=== PATIENT | female | born 1950 | race Caucasian/White ===

== ENCOUNTER 2017-11-11 15:45 | Outpatient (CLI) | payer MEDICARE | END 2017-11-11 15:46 | disposition home or self-care (01) | LOC: BICRAD 15:45 | PROVIDERS: ATTEND Family Medicine | DX: R07.9 Chest pain, unspecified (principal); R06.89 Other abnormalities of breathing | CPT/HCPCS: 71046 ==

== ENCOUNTER 2017-12-09 17:03 | Inpatient (IN) | payer MEDICARE ==
[2017-12-09 18:02] LABS: #Basophils 0.1 thou/uL (0.0-0.2); #Eosinphils 0.2 thou/uL (0.0-0.7); #Lymphocytes 2.1 thou/uL (1.20-3.40); #Monocytes 0.9 thou/uL (0.11-0.59); #Neutrophils 4.7 thou/uL (1.40-6.50); %Basophils 0.7 % (0.0-1.0); %Eosinophils 2.5 % (0.0-10.0); %Lymphocytes 26.5 % (21.0-51.0); %Monocytes 10.7 % (0.0-10.0); %Neutrophils 59.5 % (42.0-75.0); Hemoglobin 12.7 g/dL (12.0-16.0); Mean Corpuscular HGB CONC 32.8 g/dL (32.0-36.0); Mean Corpuscular Hemoglobin 32.2 pg (27.0-31.0); Mean Corpuscular Volume 98.3 fl (81.0-99.0); Mean Platelet Volume 7.6 fL (7.4-10.4); Platelet Count 271 thou/uL (130-400); RBC Distribution Width 12.6 % (11.5-14.5); Red Blood Cell (RBC) Count 3.93 mill/uL (4.20-5.40)
--- NOTE | 2017-12-09 18:31 | RAD ---
ONE VIEW CHEST: 12/09/17 HISTORY: Pain. COMPARISON: 07/18/17. FINDINGS: Normal cardiac silhouette. Pulmonary vessels and hilum are normal. No mass. No consolidation. No pneu mothorax or osseous abnormalities. IMPRESSION: No acute cardiopulmonary process. POS: [facility]
[2017-12-09 18:37] LABS: ALT (SGPT) 16 U/L (8-55); AST (SGOT) 20 U/L (5-34); Albumin 4.2 g/dL (3.4-4.8); Alkaline Phosphatase 74 U/L (40-150); Anion Gap 13 mmol/L (10-20); BUN (Urea Nitrogen) 16 mg/dL (9.8-20.1); Bilirubin, Total 0.5 mg/dL (0.2-1.2); CK (CPK) 117 U/L (29-168); Calc. Creatinine Clearance 0 mL/min (70-130); Calcium 10.1 mg/dL (7.8-10.44); Carbon Dioxide 28 mmol/L (23-31); Chloride 104 mmol/L (98-107); Estimated GFR-MDRD 81; Globulin 3.2 g/dL (2.4-3.5); Glucose 90 mg/dL (80-115); Potassium 4.4 mmol/L (3.5-5.1); Protein, Total 7.4 g/dL (6.0-8.3); Sodium 141 mmol/L (136-145)
[2017-12-09 18:38] LABS: CKMB 1.3 ng/mL (0-6.6); Troponin I 0.015 ng/mL (< 0.028)
[2017-12-09] MEDS ORDERED: Aspirin 325 MG TAB ONE (19:25)
[2017-12-09 21:31] LABS: Troponin I Less than 0.010 ng/mL (< 0.028)
[2017-12-09 21:49] VITALS: BMI 53.0
[2017-12-09] MEDS ORDERED: Famotidine 20 MG TAB PO PRN (21:53)
[2017-12-09] MEDS ORDERED: Nitroglycerin 0.4 MG TAB (25 Tab Bottle) SL PRN (21:53)
[2017-12-09] MEDS ORDERED: hydrALAZINE 20 MG/ML VIAL SLOW IVP PRN (21:53)
[2017-12-09] MEDS ORDERED: Promethazine 25 MG TAB PO PRN (21:53)
[2017-12-09] MEDS ORDERED: Docusate 100 MG CAP PO PRN (21:53)
[2017-12-09] MEDS ORDERED: Acetaminophen 500 MG TAB PO PRN (21:53)
[2017-12-09] MEDS ORDERED: Ondansetron ODT 4 MG TAB PO PRN (21:53)
[2017-12-09] MEDS ORDERED: Ondansetron ODT 4 MG TAB SL PRN (21:54)
[2017-12-09] MEDS ORDERED: Ondansetron HCl/PF 4 MG/2 ML Vial IVP PRN (21:54)
[2017-12-09] MEDS ORDERED: Acetaminophen 325 MG TAB PO PRN (21:54)
[2017-12-09] MEDS ORDERED: Morphine 4 MG/ML VIAL SLOW IVP PRN (21:55)
[2017-12-10 00:06] LABS: Troponin I Less than 0.010 ng/mL (< 0.028)
--- NOTE | 2017-12-10 04:25 | HP ---
DATE OF ADMISSION: 12/09/[address] All Peña. CHIEF COMPLAINT: Chest pain, palpitations, radiating to arms and neck. HISTORY OF PRESENT ILLNESS: Patient recently underwent a stress test with Dr. Nelson on an outpat ient basis indeterminate to possibly positive finding on the apex of heart; however, given the patien t's body habitus who was inconclusive formally. The patient was given alternatives of cardiac cathet erization for definitive answer to test versus medical management. Patient shows medical management was initiated on isosorbide mononitrate for stable angina. Patient has a history of asthma. Given h er morbid obesity, has some element of Pickwickian syndrome regarding shortness of breath; however, s he started on Imdur therapy and had acute onset of palpitations, chest pain, shortness of breath, rad iation to left jaw and arm, presented to the emergency department for evaluation. Initial EKG withou t any changes in ST pattern. Troponin x1 negative; however, despite aspirin therapy and IV fluids, p atient remained with radiating chest pain. Chest x-ray was noted to be clear. The patient has no ot her acute complaints. FORMAL REVIEW OF PAST MEDICAL, SOCIAL, SURGICAL HISTORY: History of hypertension, asthma, right shou lder surgery, appendectomy, cholecystectomy, tonsillectomy, tubal ligation. Denies alcohol or tobacc o use. HOME MEDICATIONS: Spironolactone 25 mg, Klor-Con 8 mEq, ipratropium nasal spray p.r.n., Lasix 40 mg daily, and albuterol nebs p.r.n. VITAL SIGNS: In the emergency room, blood pressure 144/72, pulse of 57, respiratory rate of 18, oxyg en saturation 95% on room air. REVIEW OF LABORATORY WORK: White blood cell count of 8.0, hemoglobin of 12.7, and platelet count of 271. Sodium of 141, potassium of 4.4, creatinine of 0.72, glucose of 90, total bilirubin of 0.5, AST of 20, ALT of 16. Troponins x2 of 0.015 less than 0.01. Albumin of 4.2. PHYSICAL EXAMINATION: GENERAL: The patient is alert and oriented, no acute distress. HEENT: Normocephalic, atraumatic. Extraocular movements are intact. Sclerae are clear. Oral mucos a is moist. NECK: Supple. Patient is morbidly obese. LUNGS: Diminished breath sounds secondary to body habitus. No wheezes, rhonchi or rales. HEART: Regular rate and rhythm at time of exam. No murmurs auscultated. ABDOMEN: Protuberant, soft, nontender. EXTREMITIES: Lower extremities with multiple varicose veins signs of venous stasis dermatitis and +1 pitting edema bilaterally. NEUROLOGIC: The patient is alert and oriented x3. No focal deficits. Speech is normal. ASSESSMENT AND PLAN: History of coronary artery disease with abnormal to indeterminate stress test p er Emergency Department. Dr. Zuniga was consulted from Emergency Department. Recommending cardiac c atheterization. The patient agreed we will admit patient to have Cardiology followup in the a.m. We will trend troponins overnight. Patient says she has bleeding hemorrhoids with aspirin use. We nisa l follow up as necessary. Regarding the patient's respiratory status. We will continue p.r.n. breat lesley treatments. Additional medication management for patient's heart per Cardiology recommendations .
[2017-12-10] MEDS: Spironolactone 25 MG TAB PO SCH ×2 (08:47→16:48)
[2017-12-10] MEDS: Potassium Chloride 8 MEQ TAB PO SCH (08:47)
[2017-12-10] MEDS: Furosemide 40 MG TAB PO SCH (08:47)
[2017-12-10] MEDS ORDERED: Sodium Chloride 0.9% 1,000 ML IV SCH (10:15)
[2017-12-10] MEDS ORDERED: Communication Order-Pharmacy FS SCH (10:15)
[2017-12-10] MEDS ORDERED: Midazolam HCl 2 mg/2 ml Vial ONE (10:37)
[2017-12-10] MEDS ORDERED: Fentanyl 100 MCG/2 ML VIAL ONE (10:37)
[2017-12-10] MEDS ORDERED: Lidocaine 1% (PF) 30 ML VIAL ONE (10:37)
[2017-12-10] MEDS ORDERED: Heparin 10,000 UNITS/1 ML VIAL ONE (10:40)
--- NOTE | 2017-12-10 10:52 | CON ---
DATE OF CONSULTATION: 12/10/2017 HISTORY: Iman Haines is a 67-year-old white female patient of Dr. Nelson, who was recently reevaluated on 11/19/2017 for chest discomfort. With walking, she would develop substernal chest pressure and tightness associated with mild shortness of breath. With rest, this would be relieved in approximately 1 minute. She underwent echocardiogram which revealed ejection fraction of 55%-60 % with evidence for diastolic dysfunction, mild mitral and mild tricuspid regurgitation. Lexiscan Cardiolite testing revealed mild ischemia of the inferior wall. She elected to try medical therapy. She took her first dose of isosorbide mononitrate 30 mg yesterday morning. At approximately 2:30PM, she was outside talking on the phone and then stood up and started having a pounding headache. She also noted at times some sharp pain on the left side of her neck and her left arm. She did not have any recurrence of the central chest pressure like she had previously with walking. With this, she also can feel her heart beating. She took her blood pressure and systolic pressure was in the 150s to 180s. Heart rate was in the 50s and then one time it was in the 90s. She continued to intermittently feel the pounding in her head and in her chest and decided to come to the emergency room. Cardiac enzymes have been unremarkable. PAST MEDICAL HISTORY: Hypertension, asthma, obesity, and GERD. OPERATIONS: Appendectomy, cholecystectomy, tonsillectomy, and tubal ligation. SOCIAL HISTORY: She does not smoke or drink. MEDICATIONS: Isosorbide mononitrate 30 mg q.a.m., which she has taken once; montelukast 10 mg at bedtime; levocetirizine 5 mg at bedtime; albuterol 2 puffs q.6 hours p.r.n.; albuterol nebs p.r.n.; furosemide 40 q.a.m.; Tessalon 100 mg t.i.d. p.r.n.; Aldactone 50 daily; KCl 8 mEq daily. ALLERGIES: TRAMADOL causes anaphylaxis. REVIEW OF SYSTEMS: A 10 point review of systems otherwise unremarkable. PHYSICAL EXAMINATION: VITAL SIGNS: 157/69, pulse of 53. HEENT: PERRL. NECK: Supple. CHEST: Clear. CARDIAC: S1 and S2 normal without any S3, S4 or murmurs. Carotid upstrokes normal, without bruits. ABDOMEN: Obese. Normal bowel sounds, no tenderness. EXTREMITIES: Revealed trace pretibial edema with stasis changes of both lower extremities. NEUROLOGIC: Grossly intact. SKIN: Warm and dry. LABORATORY DATA AND IMAGING DATA: Cardiac enzymes have been normal. EKG revealed sinus rhythm and is unremarkable. Hemoglobin 12.7, hematocrit 38.6, white count 8,000, platelets 271,000. Sodium 141, potassium 4.4, chloride 104, carbon dioxide 28, BUN 16, and creatinine 0.72. On 11/09/2017, cholesterol was 197, triglycerides 115, HDL 46, LDL 128. IMPRESSION: 1. Abnormal Lexiscan Cardiolite testing with mild ischemia of the inferior wall. 2. Pounding headache and feeling of her heart beating after taking isosorbide mononitrate. She did not have any of her usual chest discomfort yesterday. 3. Hypertension. 4. Hypercholesterolemia. 5. Positive family history. 6. Obesity. 7. Hemorrhoidal bleeding with aspirin. PLAN: Situation was discussed with the patient and her . Overall, it was recommended that she undergo cardiac catheterization for more definitive diagnosis. Risks of catheterization were discussed including , myocardial infarction, stroke, dye reaction, vascular injury, transfusion, limb loss, kidney damage, etc. We also discussed stenting, additional risk of , myocardial infarction, emergent CABG, restenosis, stent thrombosis, vessel perforation, etc. She is quite concerned about hemorrhoidal bleeding with taking aspirin on a regular basis and therefore only a bare metal stent would be placed to limit the amount of time that she would need to be exposed to Plavix. Certainly, if she would develop bleeding on aspirin and Plavix, this would need to be further evaluated. She understands the risks and is agreeable to proceed today. YOLANDA
[2017-12-10] MEDS ORDERED: Metoprolol Tartrate 5 MG/5 ML VIAL ONE (12:01)
[2017-12-10] MEDS ORDERED: Protamine Sulfate 50 MG/5 ML VIAL ONE (12:07)
[2017-12-10] MEDS ORDERED: Nitroglycerin 0.4 MG TAB (25 Tab Bottle) SL PRN (12:25)
[2017-12-10] MEDS ORDERED: Acetaminophen/Codeine 30-300mg Tablet PO PRN ×2 (12:25)
[2017-12-10] MEDS ORDERED: traMADol HCl 50 MG TAB PO PRN (12:25)
[2017-12-10] MEDS ORDERED: Dronedarone HCl 400 MG TAB PO SCH (12:30)
[2017-12-10] MEDS ORDERED: Diltiazem 125 MG in Sodium Chloride 0.9% 100 ML IVPB SCH ×2 (12:30→14:15)
[2017-12-10] MEDS ORDERED: Sodium Chloride 0.9% 200 ML IV SCH (12:30)
[2017-12-10] MEDS ORDERED: Iopamidol 370 76% 50 ML VIAL FS ONE (13:51)
[2017-12-10] MEDS ORDERED: Iopamidol 370 76% 100 ML VIAL ONE (13:51)
--- NOTE | 2017-12-10 14:07 | EKG ---
Test Reason : Blood Pressure : / mmHG Vent. Rate : 052 BPM Atrial Rate : 052 BPM P-R Int : 146 ms QRS Dur : 102 ms QT Int : 432 ms P-R-T Axes : 040 038 022 degrees QTc Int : 401 ms Sinus bradycardia Non-specific intra-ventricular conduction delay Abnormal ECG Confirmed by SEAN VELASCO ([id number]) on 12/10/2017 2:07:20 PM Referred By: RASHIDA Confirmed By:SEAN VELASCO
--- NOTE | 2017-12-10 14:12 | EKG ---
Test Reason : Blood Pressure : / mmHG Vent. Rate : 112 BPM Atrial Rate : 125 BPM P-R Int : 000 ms QRS Dur : 102 ms QT Int : 340 ms P-R-T Axes : 000 047 -58 degrees QTc Int : 464 ms Atrial fibrillation with rapid ventricular response Nonspecific ST and T wave abnormality Abnormal ECG Confirmed by SEAN VELASCO ([id number]) on 12/10/2017 2:12:05 PM Referred By: MARIAJOSE Confirmed By:SEAN VELASCO
[2017-12-10] MEDS: Dronedarone HCl 400 MG TAB PO SCH (16:47)
[2017-12-10] MEDS: Sodium Chloride 0.9% 1,000 ML IV SCH (16:48)
--- NOTE | 2017-12-10 17:03 | PRG ---
DATE OF SERVICE: 12/10/2017 SUBJECTIVE: Ms. Haines has undergone cardiac catheterization. Findings did not reveal any significan t coronary artery disease; however, she has developed atrial fibrillation. She will be getting a dos e of Multaq now. OBJECTIVE: LUNGS: Clear. HEART: Reveals an irregularly regular rhythm. IMPRESSION: Chest pain probably secondary to atrial fibrillation and normal coronary arteries. PLAN: Per Cardiology. She will be placed on Multaq; she converts, she probably can go home tomorrow on Multaq that will be at the Cardiology. We will notify Dr. Bolanos of the patient. He will follow her tomorrow.
[2017-12-11] MEDS: Sodium Chloride 0.9% 1,000 ML IV SCH ×3 (01:32→16:05)
[2017-12-11] MEDS: Spironolactone 25 MG TAB PO SCH ×2 (08:14→16:04)
[2017-12-11] MEDS: Potassium Chloride 8 MEQ TAB PO SCH (08:15)
[2017-12-11] MEDS: Furosemide 40 MG TAB PO SCH (08:15)
[2017-12-11] MEDS: Dronedarone HCl 400 MG TAB PO SCH ×2 (08:15→16:04)
[2017-12-11] MEDS: Enoxaparin Sodium 100 MG/ML SYRINGE SC SCH (20:46)
[2017-12-11] MEDS: Enoxaparin Sodium 40 MG/0.4 ML SYRINGE SC SCH (20:47)
[2017-12-11] MEDS ORDERED: Enoxaparin Sodium 120 MG/0.8 ML SYRINGE SC SCH (21:00)
[2017-12-12 00:29] LABS: Hemoglobin 11.1 g/dL (12.0-16.0); Platelet Count 213 thou/uL (130-400)
[2017-12-12] MEDS: Dronedarone HCl 400 MG TAB PO SCH ×2 (09:17→17:03)
[2017-12-12] MEDS: Potassium Chloride 8 MEQ TAB PO SCH (09:17)
[2017-12-12] MEDS: Furosemide 40 MG TAB PO SCH (09:18)
[2017-12-12] MEDS: Spironolactone 25 MG TAB PO SCH ×2 (09:18→17:03)
[2017-12-12] MEDS: Enoxaparin Sodium 100 MG/ML SYRINGE SC SCH (09:29)
[2017-12-12] MEDS: Enoxaparin Sodium 40 MG/0.4 ML SYRINGE SC SCH (09:29)
[2017-12-12] MEDS ORDERED: Lisinopril 10 MG TAB PO SCH (18:00)
--- NOTE | 2017-12-12 22:27 | CON ---
DATE OF CONSULTATION: 12/12/2017 REASON FOR CONSULTATION: Hematochezia. CONSULTING PHYSICIAN: Noble Rey M.D. HISTORY OF PRESENT ILLNESS: The patient is a 67-year-old female with past medical history of hyperte nsion, asthma, obesity, GERD, YOMAIRA and recent diagnosis of paroxysmal atrial fibrillation as well as a history of bleeding hemorrhoids, who initially presented with complaints of chest pain. The patient was evaluated by Dr. Nelson as an outpatient to determine the possibility of possible coronary ar heidy disease given her recent chest pain, as part of that evaluation has ultimately proceeded to card iac catheterization. During the cardiac catheterization, she was noted to be in paroxysmal bouts of atrial fibrillation as well as electrical conductivity abnormalities concerning for sick sinus syndro me. With this new diagnosis of paroxysmal atrial fibrillation, the jain of that anticoagulation wa s discussed with the patient; however, she does have a history of chronic bleeding hemorrhoids that w ould be exacerbated by minimal changes in both bowel habit and medications. Given concern for increa sed anticoagulation, GI was consulted for evaluation of her hemorrhoids. Upon speaking with the patient, she states that she has been having intermittent rectal bleeding for the last 2 years, characterized as bright red blood per rectum that was present on both the toilet pa per and in the toilet. These are felt to be due to hemorrhoids that have been evaluated in the past for GI with exacerbations of her bleeding hemorrhoids prompted by use of full strength aspirin and in creased straining to have a bowel movement. She also states she is currently having one semi-solid b owel movement per day with intermittent straining, but does spend a prolonged amount of time on the t oilet as a result of her stooling habits. Currently, denies any nausea, vomiting, fevers, chills, ab dominal pain, hematemesis or melena. REVIEW OF SYSTEMS: A 10-category review of systems was obtained with all responses negative except f or the pertinent positives as listed in the HPI. PAST MEDICAL HISTORY: As per HPI. PAST SURGICAL HISTORY: Right shoulder surgery, appendectomy, cholecystectomy, tonsillectomy, bilater al tubal ligation. FAMILY HISTORY: Denies any GI malignancies. SOCIAL HISTORY: Denies any tobacco, alcohol or illicit drug use. HOME MEDICATIONS: Reviewed. ALLERGIES: TRAMADOL and HYDRALAZINE. PHYSICAL EXAMINATION: VITAL SIGNS: Temperature 97.9, pulse 71, blood pressure 134/78, respiratory rate 16, satting 93% on room air. GENERAL: The patient sitting at bedside, in no acute distress, alert and oriented x4. NECK: Supple. No JVD noted. CARDIOVASCULAR: Regular rate and rhythm with no discernible murmurs, gallops or rubs. RESPIRATORY: Clear to auscultation bilaterally with no discernible wheezes or rales. ABDOMEN: Normoactive bowel sounds, soft, nontender, and nondistended. Protuberant abdomen. EXTREMITIES: Venous stasis rash noted bilaterally to mid ferreira with trace to 1+ edema to mid ferreira. LABORATORY DATA: CBC with hemoglobin of 11.1, hematocrit 33.1. Chemistry only showing a creatinine of 0.74. IMAGING DATA: No current GI imaging is available for review. ASSESSMENT AND PLAN: The patient is a 67-year-old female with past medical history of hypertension, asthma, morbid obesity, gastroesophageal reflux disease, obstructive sleep apnea, and recent diagnosi s of paroxysmal atrial fibrillation and history of bleeding hemorrhoids, presenting with complaints o f hematochezia in light of impending anticoagulation. Hematochezia. The patient is presenting with a chronic history of hematochezia characterized as blee ding hemorrhoids that have been present for the last 2 years. She was evaluated to that end as an ou tpatient in 05/2011 with complaints of rectal bleeding and underwent colonoscopy by Dr. Jules, which showed both internal and external hemorrhoids, but no other significant findings. Recommendations w ere made at that particular point in time to repeat the colonoscopy in 10 years as part of screening purposes. However, she does continue to have rectal bleeding most likely due to hemorrhoids, exacerb ated by increased straining to have a bowel movement and spending prolonged amounts of time on the to ilet. With the jain of anticoagulation, hemorrhoid surgery is a possibility; however, she has been seen by Dr. Bullard as an outpatient, who wanted a repeat colonoscopy prior to surgery for the evalu ation of the colon for any other abnormalities. At this point in time, the patient is very hesitant to proceed with a repeat colonoscopy and would rather focus on her cardiac issues at the current poin t in time. I explained both the risks and the benefits of having a repeat colonoscopy for the evalua tion to get these hemorrhoids fix prior to anticoagulation versus proceeding with anticoagulation and monitoring her clinical status. At this point in time, she would prefer to hold on colonoscopy and talk with her industrial relations specialist about anticoagulation in light of her bleeding hemorrhoids. RECOMMENDATIONS: 1. Continue to trend hemoglobin and hematocrit and transfuse as necessary to maintain hemoglobin and hematocrit of 7/21. 2. Continue to monitor for clinical signs of active gastrointestinal bleeding. 3. We will hold off on colonoscopy for now per patient's preference. I would recommend one in the n ear future for evaluation of the colon prior to hemorrhoid surgery as per General Surgery recommendat ions. We will sign off at this time. Please call with any additional questions or if the patient wishes to proceed with colonoscopy.
[2017-12-13] MEDS: Dronedarone HCl 400 MG TAB PO SCH ×2 (08:40→17:22)
[2017-12-13] MEDS: Spironolactone 25 MG TAB PO SCH ×3 (08:40→17:24)
[2017-12-13] MEDS: Furosemide 40 MG TAB PO SCH (08:40)
[2017-12-13] MEDS: Potassium Chloride 8 MEQ TAB PO SCH (08:41)
[2017-12-13] MEDS: Lisinopril 10 MG TAB PO SCH ×2 (08:41→20:38)
--- NOTE | 2017-12-13 13:23 | PRG ---
DATE OF SERVICE: 12/13/2017 Ms. Haines is now out of atrial fibrillation. She is currently on Multaq. She has developed some rec jim bleeding. This has been known for a while. She was recommended to have a colonoscopy. This has been tentatively scheduled for tomorrow. No other medical complaints are noted. IMPRESSION: 1. Atrial fibrillation. 2. Gastrointestinal bleeding secondary to symptomatic hemorrhoids. PLAN: I have recommended we go ahead and proceed with colonoscopy so she can be monitored while she is here. Await other treatment recommendations. This needs to be done, so the patient can start enrrique g-term anticoagulant therapy.
--- NOTE | 2017-12-13 13:40 | PRG ---
DATE OF SERVICE: 12/13/2017 SUBJECTIVE: Ms. Haines is noted to have a little bit of cough, starting dry cough, and some slight wh eezing since she is being here. She did start lisinopril yesterday and wonders if this is a side eff ect, she has not had a cough like this. She also does have asthma and does not feel like she is havi ng exacerbation and she takes p.r.n. inhalers, but she states her has noticed audible wheezin g. OBJECTIVE: VITAL SIGNS: Temperature is 97, pulse 62, respirations 18, blood pressure 108/73. GENERAL: The patient is a little bit overweight. She seems a little bit short of breath. LUNGS: Clear. I do not hear any audible wheezing, some decreased breath sounds at bases. EXTREMITIES: No edema. LABORATORY STUDIES: None today. ASSESSMENT: 1. New onset atrial fibrillation. Dr. Rey is considering anticoagulation. The patient jose stratton has had a history of rectal bleeding recently and had seen Dr. Bullard about hemorrhoidectomy, bu t he wanted to have a colonoscopy first since her last examination has been in 2010 or 2011, which sh e reports it was normal. She has had no bleeding here presently. 2. The patient at this time is not sure if she wants to proceed with colonoscopy and she wants to aw ait Dr. All Peña. She was concerned that cardiology, she got a colonoscopy with atrial fibrilla tion, basically explained to her that she has been cleared by Cardiology. From that standpoint, I th ink with her asthma or wheezing, however, and cough, this may be an issue, I will talk with Dr. Peña after she sees today. PLAN: She will need a colonoscopy ultimately with her hematochezia. It seems that her Surgery wants this done before she has a hemorrhoidectomy and her financial management analyst like it done before he puts her on blood thinners, which seems to be reasonable and she describes having quite a bit of bleeding at time s, although she is not anemic. We will proceed with colonoscopy once she decides she is ready and re spiratory status is stable. I will talk with Dr. Peña later today about that. This could be done a s an inpatient tomorrow or an outpatient later this week.
[2017-12-13] MEDS ORDERED: GoLYTELY 4,000 ml Bottle PO SCH (16:00)
--- NOTE | 2017-12-13 19:20 | PRG ---
DATE OF SERVICE: 12/13/2017 SUBJECTIVE: Ms. Haines is doing well. She states she has had recurrent bleeding. She is scheduled f or colonoscopy tomorrow. She is off all anticoagulation therapy. She has been in sinus rhythm since starting Multaq. OBJECTIVE: VITAL SIGNS: Blood pressure 130/64, pulse 60, temperature 97.6. LUNGS: Clear to auscultation. HEART: Regular rate and rhythm. ABDOMEN: Soft, nontender, nondistended. EXTREMITIES: No edema. IMPRESSION: Paroxysmal atrial fibrillation. RECOMMENDATIONS: Certainly, a difficult case. We will await findings on colonoscopy. At this point , I do not feel she would benefit from anticoagulation therapy given that she is continuing to bleed. May consider surgery versus a Watchman device to help protect from CVA. A long discussion with landy randolph her and her was performed today. Otherwise, we will await findings tomorrow.
[2017-12-14 05:20] LABS: Hemoglobin 11.1 g/dL (12.0-16.0); Platelet Count 217 thou/uL (130-400)
[2017-12-14] MEDS: Lisinopril 10 MG TAB PO SCH ×2 (07:40→20:38)
--- NOTE | 2017-12-14 07:59 | PRG ---
DATE OF SERVICE: 12/14/2017 Ms. Haines is doing well today. She has no medical complaints. PHYSICAL EXAMINATION: VITAL SIGNS: Temperature 97.8, BP 143/83. LUNGS: Clear. HEART: Reveals no murmur, regular rate and rhythm. LABORATORY: Hemoglobin 11.1, hematocrit 32.8. She is scheduled for colonoscopy later today. Review of her note, she has had a discussion with Dr. Nelson about further treatment of her atrial fibrillation. This will somewhat depend on the findings of her colonoscopy. More than likely she w ill be discharged home today on her current medications to follow up with Cardiology and possibly fol low up with Surgery for hemorrhoid procedures. This will be determined by colonoscopy.
[2017-12-14] MEDS: Dronedarone HCl 400 MG TAB PO SCH ×2 (14:17→15:37)
[2017-12-14] MEDS: Spironolactone 25 MG TAB PO SCH ×2 (14:17→15:37)
[2017-12-14] MEDS: Potassium Chloride 8 MEQ TAB PO SCH (15:36)
[2017-12-14] MEDS: Furosemide 40 MG TAB PO SCH (15:37)
--- NOTE | 2017-12-14 15:37 | OP ---
DATE OF PROCEDURE: 12/14/2017 PROCEDURE: Colonoscopy. PREOPERATIVE DIAGNOSIS: Hematochezia. OPERATIVE NOTE: Informed consent was obtained from the patient. She was sedated with total intraven ous anesthesia. The rectal exam was performed and was normal. The colonoscope was advanced without difficulty to the terminal ileum. The mucosa of the terminal ileum was normal. The ileocecal valve and appendiceal orifice were clearly identified. The preparation quality was fair but with extensive irrigation, views were adequate. There was diverticulosis throughout the colon, which was moderate in severity. The remainder of the colonic mucosa was normal. Retroflexed views in the rectum reveal ed large internal hemorrhoids which did have some intermittent oozing and clotting over them that was hed clear. There is also some red blood on the washcloth that indicates mild bleeding from these hem orrhoids. There was no blood in the rectum or distal colon to suggest diverticular source for bleedi ng. RECOMMENDATIONS: 1. Follow up with Dr. Bullard for hemorrhoidectomy. I will keep her on a clear liquid diet for now until the timing of this procedure is determined. 2. Repeat colonoscopy in five years in light of the fair colon prep. 3. I will sign off for now. Please call if GI can be of assistance.
[2017-12-14] MEDS ORDERED: ePHEDrine/0.9% NaCl/PF SYRINGE 50 mg/10 ml ONE (16:16)
[2017-12-14] MEDS ORDERED: Lidocaine 1% PF 5 ML VIAL ONE (16:16)
[2017-12-14] MEDS ORDERED: PROPOFOL 200 MG/20 ML VIAL ONE (16:16)
[2017-12-15] MEDS: Potassium Chloride 8 MEQ TAB PO SCH (08:57)
[2017-12-15] MEDS: Dronedarone HCl 400 MG TAB PO SCH ×2 (08:57→16:01)
[2017-12-15] MEDS: Lisinopril 10 MG TAB PO SCH ×2 (08:58→21:06)
[2017-12-15] MEDS: Spironolactone 25 MG TAB PO SCH ×2 (08:58→16:01)
[2017-12-15] MEDS: Furosemide 40 MG TAB PO SCH (08:58)
--- NOTE | 2017-12-15 09:25 | PRG ---
DATE OF SERVICE: 12/15/2017 Ms. Haines has undergone colonoscopy, which has revealed extensive hemorrhoidal disease. A decision h as been made by myself to have consultation with Dr. Nelson and Dr. Velázquez. I wished her to procee d with hemorrhoidectomy Patient is already prepped. We will consult with Dr. Bullard and let him kn ow the situation. Patient has been kept on clear liquids; however, she could have her surgery by pito velásquez. Patient has verbalized understanding of this at this point, and after hemorrhoidectomy, she c an be discharged home. Once she is recovered, she is to start anticoagulant therapy under the devonte ce of Cardiology.
--- NOTE | 2017-12-15 13:09 | PDOC.CTH ---
Cardiology Progress Note - Subjective Patient without complaints. Wants to discuss long-term OAC and risks. Plan for hemorrhoidectomy tomorrow. - Objective Vital Signs Temp Pulse Resp BP BP Pulse Ox 12/15/17 08:00 98.3 F 56 L 16 137/71 95 12/15/17 04:00 97.8 F 63 18 119/52 L 93 L 12/14/17 12/15/17 12/16/17 06:59 06:59 06:59 Intake Total 720 600 Output Total 1000 500 Balance -280 100 - Physical Examination General/Neuro: alert & oriented x3, NAD Neck: no JVD present Lungs: CTA, unlabored respirations Heart: RRR Abdomen: NT/ND Extremities: other: (chronic venous stasis changes) - Telemetry Telemetry Rhythm: SR - Labs Result Diagrams: 12/14/17 03:50 12/14/17 00:40 Troponin/CKMB CK-MB (CK-2) 1.3 ng/mL (0-6.6) 12/09/17 17:52 Troponin I Less than 0.010 ng/mL (< 0.028) 12/09/17 23:29 - Assessment/Plan 1. CP - resolved. Negative cath. No CAD. 2. Paroxysmal AFib - maintaining NSR on Multaq. Discussed NOACs. Will discuss when to start post-operatively. 3. Anemia - thought to be secondary to hemorrhoid bleeding. Surgery tomorrow. Low-risk of ACS.
[2017-12-16 06:03] LABS: Hemoglobin 11.1 g/dL (12.0-16.0); Platelet Count 229 thou/uL (130-400)
--- NOTE | 2017-12-16 08:09 | PRG ---
DATE OF SERVICE: 12/16/2017 SUBJECTIVE: Ms. Haines is doing well. She is ready for surgery. She has been prepped . PHYSICAL EXAMINATION: VITAL SIGNS: Blood pressure 149/69, temperature 97.6, pulse 56 and regular. LUNGS: Clear. HEART: Reveals no murmur. Regular rate and rhythm. IMPRESSION: 1. Atrial fibrillation. 2. Hemorrhoids. PLAN: The patient underwent hemorrhoidectomy today. She can be discharged later . Follow up w micki moreno on a p.r.n. basis and primary followup would be with the Cardiology surgery. She will follow up with Cardiology to begin oral anticoagulant therapy.
[2017-12-16] MEDS: Lisinopril 10 MG TAB PO SCH ×2 (08:27→20:31)
[2017-12-16] MEDS ORDERED: cefOXitin 2 GM, Syringe 1 ML in Sterile Water 10 ML SLOW IVP SCH (12:15)
[2017-12-16] MEDS ORDERED: Fentanyl 100 MCG/2 ML VIAL ONE (12:33)
[2017-12-16] MEDS ORDERED: Lidocaine 2% 10 ML INJ ONE (12:36)
[2017-12-16] MEDS ORDERED: Bupivacaine/Epinephrine 0.25% 30 ML VIAL ONE (12:36)
[2017-12-16] MEDS ORDERED: Lidocaine 2% Jelly 5 ML TUBE ONE (12:36)
[2017-12-16] MEDS ORDERED: Lidocaine 1% PF 5 ML VIAL ONE (12:56)
[2017-12-16] MEDS ORDERED: ePHEDrine/0.9% NaCl/PF SYRINGE 50 mg/10 ml ONE (12:56)
[2017-12-16] MEDS ORDERED: Glycopyrrolate 0.2 MG/ML 5 ML SYRINGE ONE (12:56)
[2017-12-16] MEDS ORDERED: PROPOFOL 200 MG/20 ML VIAL ONE (12:56)
[2017-12-16] MEDS ORDERED: Dexamethasone 20 MG/5 ML VIAL ONE (12:56)
[2017-12-16] MEDS ORDERED: Promethazine HCl 25 MG/ML VIAL SLOW IVP PRN (13:58)
[2017-12-16] MEDS ORDERED: Ondansetron HCl/PF 4 MG/2 ML Vial IVP PRN (13:58)
[2017-12-16] MEDS ORDERED: Promethazine HCl 25 MG/ML VIAL IM PRN (13:58)
[2017-12-16] MEDS ORDERED: HYDROcodone/Acetaminophen 10/325 mg Tablet PO PRN (14:03)
--- NOTE | 2017-12-16 14:51 | PDOC.CTH ---
Cardiology Progress Note - Subjective patient just back from OR. Drowsy. No CP/SOB. Maintaining NSR on tele. José. HR down to 40s 5/2. Asymptomatic. - Objective Vital Signs Temp Pulse Resp BP BP Pulse Ox 12/16/17 08:25 97.9 F 59 L 18 129/60 94 L 12/16/17 04:00 97.6 F 56 L 16 149/69 H 94 L 12/15/17 12/16/17 12/17/17 06:59 06:59 06:59 Intake Total 600 840 Output Total 500 300 Balance 100 540 - Physical Examination General/Neuro: alert & oriented x3, NAD Neck: no JVD present Lungs: CTA, unlabored respirations Heart: PMI normal, RRR Abdomen: soft - Telemetry Telemetry Rhythm: Sinus José - Labs Result Diagrams: 12/16/17 05:33 12/16/17 00:14 Troponin/CKMB CK-MB (CK-2) 1.3 ng/mL (0-6.6) 12/09/17 17:52 Troponin I Less than 0.010 ng/mL (< 0.028) 12/09/17 23:29 - Assessment/Plan 1. CP - negative cath. 2. Paroxysmal AF - converted back to NSR/Sinus josé. Avoid bblockers. Continue Multaq and Eliquis. May need EVR at discharge given josé. 3. Bradycardia - see above. 4. Anemia - secondary to GIB/hemorrhoids. s/p hemorrhoidectomy. Ok for discharge from my standpoint once cleared from surgical team. Will discuss EVR with Dr. Nelson and mail to patient if needed. Resume NOAC when allowed by GS team.
[2017-12-16] MEDS: Dronedarone HCl 400 MG TAB PO SCH ×2 (17:18)
[2017-12-16] MEDS: Spironolactone 25 MG TAB PO SCH ×2 (17:18)
[2017-12-16] MEDS: Potassium Chloride 8 MEQ TAB PO SCH (17:18)
[2017-12-16] MEDS: Furosemide 40 MG TAB PO SCH (17:18)
[2017-12-16] MEDS: HYDROcodone/Acetaminophen 10/325 mg Tablet PO PRN (20:32)
[2017-12-17] MEDS: HYDROcodone/Acetaminophen 10/325 mg Tablet PO PRN ×2 (01:06→05:28)
--- NOTE | 2017-12-17 08:23 | PDOC.GSPN ---
Surgery Progress Note: Subj - Subjective Narrative: POD 1 internal hemorrhoidectomy, pain controlled Surgery Progress Note: Obj - Vital signs Vital signs: Vital Signs - Most Recent Temp Pulse Resp BP Pulse Ox 97.8 F 59 L 17 126/54 L 95 12/17/17 04:00 12/17/17 04:00 12/17/17 04:00 12/17/17 04:00 12/17/17 04:00 - Physical Exam General: no distress Surgery Progress Note: Results - Labs Result Diagrams: 12/16/17 05:33 12/16/17 00:14 Surgery Progress Note: A/P - Problem (1) Bleeding internal hemorrhoids Current Visit: Yes Code(s): K64.8 - OTHER HEMORRHOIDS Status: Acute - Plan Plan: POD 1 PPH hemorrhoidectomy. DC today. Needs to take miralax daily
[2017-12-17 08:31] VITALS: BP 127/58; TEMP 98.2
[2017-12-17] MEDS: Dronedarone HCl 400 MG TAB PO SCH (08:33)
[2017-12-17] MEDS: Spironolactone 25 MG TAB PO SCH (08:33)
[2017-12-17] MEDS: Potassium Chloride 8 MEQ TAB PO SCH (08:34)
[2017-12-17] MEDS: Furosemide 40 MG TAB PO SCH (08:34)
--- NOTE | 2017-12-17 08:38 | PRG ---
DATE OF SERVICE: 12/17/2017 Ms. Haines was set to go home yesterday, unfortunately she developed some swelling of her lip and thro at. She remained overnight. At this time she has not noticed any problems with it. PHYSICAL EXAMINATION: VITAL SIGNS: Temperature 97.8, BP 126/64, pulse 59 and regular. LUNGS: Clear. HEART: Reveals no murmur. FACE: There is no swelling of the upper or lower lip noted. She is breathing normally. She is able to swallow. IMPRESSION: 1. Atrial fibrillation. 2. Hemorrhoids, status post hemorrhoidectomy. 3. Incident of lip swelling. This possibly could be related to lisinopril. This probably needs to be stopped. She probably needs to have her blood pressure medicine today prior to discharge. PLAN: I will discuss this with Dr. Nelson prior to discharge. At this point, we will hold her li sinopril.
[2017-12-17] MEDS ORDERED: Polyethylene Glycol 3350 17 GM Packet PO SCH (09:00)
--- NOTE | 2017-12-17 15:36 | PRG ---
DATE OF SERVICE: 12/17/2017 SUBJECTIVE: Ms. Haines is doing better today. No current complaints. She did have episode of lip sw elling yesterday. This may have been related to DEISI inhibitor therapy. This is felt to have been di scontinued. Norvasc has been added. OBJECTIVE: VITAL SIGNS: Blood pressure 127/58, pulse 60, temperature 98.2. LUNGS: Clear to auscultation. HEART: Regular rate and rhythm. ABDOMEN: Soft, nontender, nondistended. EXTREMITIES: No edema. IMPRESSION: 1. Paroxysmal atrial fibrillation. 2. Hypertension. RECOMMENDATIONS: 1. Continue Multaq. 2. Add Eliquis as an outpatient when she is out of her postop period. 3. Add Norvasc 5 [address] q[address]a.m. and place of lisinopril and ARB. From my standpoint, okay for discharge with outpatient followup next week.
--- NOTE | 2017-12-20 13:20 | OP ---
DATE OF PROCEDURE: 12/16/2017 PREOPERATIVE DIAGNOSIS: Bleeding and prolapsing internal hemorrhoids. POSTOPERATIVE DIAGNOSIS: Bleeding and prolapsing internal hemorrhoids. PROCEDURE: PPH stapled hemorrhoidectomy. SURGEON: Edwin Bullard M.D. ANESTHESIA: General. ESTIMATED BLOOD LOSS: Minimal. COMPLICATIONS: None. SPECIMEN: Hemorrhoids. TECHNIQUE: The patient was taken to the operating room and placed supine on the table. After anesth etic was obtained, placed in the prone position. Her perineal area was taped open. Anal finger exam revealed no obvious anal canal mass. The obturator is placed and sewn to the perianal skin using si lk suture. A pursestring of Prolene was placed 2 cm above the anal verge circumferentially. PPH sta pled hemorrhoidectomy stapler was opened to its full extent. The anvil was placed above and the sutu re tied down. The ends of the suture passed through the stapler and held using a hemostat. The stap ler was tied down into the green zone. Finger was placed in the vagina to make sure the posterior wa ll was not involved. The stapler was fired. Two good rings of tissue were obtained and sent to path for final diagnosis. A few bleeders on the staple line were oversewn using Vicryl suture. The prol apsing hemorrhoids are much improved after the stapling. The Gelfoam and lidocaine jelly was passed in the anal canal. The patient was en route to recovery in stable condition. All instrument counts, needle counts, lap counts were correct. No injury to the sphincter muscle were complexed.
== END 2017-12-17 10:53 | disposition home or self-care (01) | DRG 982 ==
LOC: ERS 17:03 → 2SW 19:00 → OBSVTOIN 12-12 17:18 → 2NO 12-13 14:46
PROVIDERS: ADMIT Family Medicine; ATTEND Family Medicine
PROC: 4A023N7 Measurement of Cardiac Sampling and Pressure, Left Heart, Percutaneous Approach (ICD-10-PCS; principal; 2017-12-10)
PROC: B2111ZZ Fluoroscopy of Multiple Coronary Arteries using Low Osmolar Contrast (ICD-10-PCS; 2017-12-10)
PROC: B2151ZZ Fluoroscopy of Left Heart using Low Osmolar Contrast (ICD-10-PCS; 2017-12-10)
PROC: 0DJD8ZZ Inspection of Lower Intestinal Tract, Via Natural or Artificial Opening Endoscopic (ICD-10-PCS; 2017-12-14)
PROC: 0DQQ8ZZ Repair Anus, Via Natural or Artificial Opening Endoscopic (ICD-10-PCS; 2017-12-16)
DX: I48.0 Paroxysmal atrial fibrillation (principal); Z68.43 Body mass index [BMI] 50.0-59.9, adult; E66.01 Morbid (severe) obesity due to excess calories; J45.909 Unspecified asthma, uncomplicated; K57.30 Diverticulosis of large intestine without perforation or abscess without bleeding; K64.8 Other hemorrhoids; I10 Essential (primary) hypertension; K21.9 Gastro-esophageal reflux disease without esophagitis; G47.33 Obstructive sleep apnea (adult) (pediatric); E78.00 Pure hypercholesterolemia, unspecified; D50.0 Iron deficiency anemia secondary to blood loss (chronic); R22.0 Localized swelling, mass and lump, head; Z88.5 Allergy status to narcotic agent; Z79.899 Other long term (current) drug therapy; T46.4X5A Adverse effect of angiotensin-converting-enzyme inhibitors, initial encounter
CPT/HCPCS: 36415; 71045; 76942; 80053; 82550; 82553; 82565; 84484; 85014; 85018; 85025; 85049; 88304; 93005; 93010; 93458; 93798; 99152; 99153; A4216; C1769; J0360; J0694; J1100; J1644; J1650; J2001; J2250; J2704; J2720; J3010; J7050

== ENCOUNTER 2018-02-21 12:38 | Outpatient (CLI) | payer MEDICARE ==
--- NOTE | 2018-02-21 13:34 | RAD ---
TWO VIEWS CHEST: Comparison: 12-08-17 History: Dyspnea. FINDINGS: Two views of the chest show normal sized cardiomediastinal silhouette. There is no evidence of consol idation, mass, or pleural effusion. Degenerative changes are seen in the spine. IMPRESSION: No evidence of acute cardiopulmonary disease. POS: [facility]
== END 2018-02-21 12:39 | disposition home or self-care (01) ==
LOC: RAD 12:38
PROVIDERS: ATTEND Internal Medicine
DX: R06.00 Dyspnea, unspecified (principal)
CPT/HCPCS: 71046

== ENCOUNTER 2018-04-14 19:30 | Outpatient (CLI) | payer MEDICARE | END 2018-04-14 19:31 | disposition home or self-care (01) | LOC: SLEEPLAB 19:30 | PROVIDERS: ATTEND Internal Medicine | DX: G47.33 Obstructive sleep apnea (adult) (pediatric) (principal); E66.9 Obesity, unspecified; I10 Essential (primary) hypertension; K21.9 Gastro-esophageal reflux disease without esophagitis; R35.1 Nocturia; R51 Headache; Z68.43 Body mass index [BMI] 50.0-59.9, adult | CPT/HCPCS: 95811 ==

== ENCOUNTER 2018-12-14 14:42 | Outpatient (CLI) | payer MEDICARE ==
--- NOTE | 2018-12-14 15:28 | ULT ---
Exam: Carotid ultrasound HISTORY: Wellness exam. COMPARISON: None TECHNIQUE: Grayscale, color flow, Doppler imaging and spectral waveform analysis performed of carotid and vertebral arteries FINDINGS: Right carotid: No significant atherosclerotic disease. Peak systolic velocity of the common carotid a rtery is 161 cm/s. Peak systolic velocity of the internal carotid artery is 114 cm/s. Systolic ICA to CCA ratio 0.71 Left carotid: No significant obstructive disease. Peak systolic velocity of the common carotid artery is 128 cm/s. Peak systolic velocity of the internal carotid artery is 114 cm/s. Systolic ICA to CCA ratio 0.89 Antegrade flow in both vertebral arteries IMPRESSION: No grayscale evidence of significant atherosclerotic disease or narrowing. However, there is elevation of the peak systolic velocity in the left and right common carotid artery suggesting moderate (50-69%) stenosis. Further evaluation with CT angiogram of the neck if clinically warranted.
== END 2018-12-14 14:43 | disposition home or self-care (01) ==
LOC: BICULT 14:42
PROVIDERS: ATTEND Family Medicine
DX: Z00.00 Encounter for general adult medical examination without abnormal findings (principal); I10 Essential (primary) hypertension; R09.89 Other specified symptoms and signs involving the circulatory and respiratory systems
CPT/HCPCS: 93880

== ENCOUNTER 2019-01-02 08:10 | Outpatient (CLI) | payer MEDICARE ==
--- NOTE | 2019-01-02 08:56 | CT ---
CT arteriogram neck with IV contrast and 3-D imaging HISTORY: Abnormal sonogram. Elevated carotid velocities. FINDINGS: There is normal branching of the great vessels at the aortic arch. Mild arterial calcificat ion. Good flow into each carotid and vertebral system. Mild calcified plaque at each carotid bifurcation. The right ICA is widely patent. Minimal narrowing of the proximal left ICA, much less than 50%. Each external carotid artery and branches widely patent. IMPRESSION: There is mild atherosclerosis. No evidence of significant carotid stenosis.
[2019-01-02] MEDS ORDERED: ISOVUE-370 76%-LOCM 1 ML ONE (10:55)
== END 2019-01-02 08:11 | disposition home or self-care (01) ==
LOC: BICCT 08:10
PROVIDERS: ATTEND Family Medicine
DX: R09.89 Other specified symptoms and signs involving the circulatory and respiratory systems (principal); I65.23 Occlusion and stenosis of bilateral carotid arteries
CPT/HCPCS: 70498; 82565; Q9966

== ENCOUNTER 2019-01-04 15:48 | Outpatient (CLI) | payer MEDICARE ==
--- NOTE | 2019-01-04 16:47 | MRI ---
MRI Lumbar Spine Noncontrast: HISTORY: Acute left-sided low back pain. COMPARISON: None FINDINGS: The visualized retroperitoneal structures demonstrate a normal appearance. Conus medullaris is normal in morphology and terminates at the L1 level. Mild endplate degenerative changes as well as small Schmorl's node are seen involving the lower lumba r spine levels. Vacuum phenomenon is also seen within the intervertebral discs lower lumbar spine. There is generalized narrowing of the central spinal canal due to congenitally short pedicles. L1-2: There is no disc bulge or disc herniation. Central spinal canal and neural foramina are patent. L2-3: There is loss of intervertebral disc height. Broad-based discussed by complex and a left parace ntral disc protrusion are present. Findings result in moderate to severe narrowing of the central spinal canal. Mild bilateral neural foraminal narrowing is present greater on the left. L3-4: There is loss of intervertebral disc height. Facet hypertrophic changes are present. Mild disc osteophyte complex is present. There is moderate narrowing of the central spinal canal. Moderate to severe right and severe left-sided neural foraminal narrowing is present. L4-5: There is broad-based disc osteophyte complex with severe facet hypertrophic changes and ligamen tous thickening. There is moderate narrowing of the central spinal canal and narrowing of the lateral recesses. Moderate to severe bilateral neural foraminal narrowing is present greater on the r ight. There is trace grade 1 anterolisthesis of L4 on L5. L5-S1: No significant disc bulge is present, but there is vacuum phenomenon seen in the intervertebra l disc. There are severe facet hypertrophic changes noted which results in moderate to severe right and moderate left-sided neural foraminal narrowing. IMPRESSION: 1. Multilevel degenerative changes throughout the lumbar spine with moderate and moderate to severe n eural foraminal narrowing at multiple levels as described above. There is generalized narrowing of the central spinal canal due to congenitally short pedicles with greater degrees of narrowing of the central spinal canal at multiple levels due to disc osteophyte complexes and facet hypertrophic changes as described above 2. Trace grade 1 anterolisthesis of L4 on L5.
== END 2019-01-04 15:49 | disposition home or self-care (01) ==
LOC: TBSIIMAG 15:48
PROVIDERS: ATTEND Family Medicine
DX: M54.42 Lumbago with sciatica, left side (principal); M47.816 Spondylosis without myelopathy or radiculopathy, lumbar region; M48.061 Spinal stenosis, lumbar region without neurogenic claudication; M47.817 Spondylosis without myelopathy or radiculopathy, lumbosacral region; M48.07 Spinal stenosis, lumbosacral region; M43.16 Spondylolisthesis, lumbar region
CPT/HCPCS: 72148

== ENCOUNTER 2019-09-19 10:42 | Outpatient (CLI) | payer MEDICARE ==
--- NOTE | 2019-09-19 12:18 | MRI ---
MRI OF THE LEFT HIP WITHOUT IV CONTRAST: INDICATION: Left hip pain. COMPARISON: Left hip radiograph dated August 15, 2019. FINDINGS: There is moderate to severe degenerative arthrosis involving the left hip with prominent multidirecti onal, multiple focus degenerative tearing of the acetabular labrum involving the anterosuperior, superior and posterior superior acetabular labrum. There is a small subchondral cystlike abnormality and subchondral edema involving the anterosuperior and superior acetabulum as well as portions of the superior femoral head. No acute fracture is evident. There is a small left-sided hip effusion. Th ere is a full width, partial-thickness tear involving the anterior left gluteus medius tendon at its insertion. There is prominent tendinosis of the left gluteus minimus tendon. There is mild trocha nteric bursitis. No iliopsoas bursitis is evident. Rectus femoris and hamstring origins are normal appearing. Sciatic nerve is normal-appearing. Moderate degenerative changes are seen involving the co ntralateral right hip. IMPRESSION: 1. Moderate to severe left hip osteoarthrosis with degenerative tears involving the left hip acetabul ar labrum. 2. Partial width full-thickness tear involving the anterior to mid left gluteus medius tendon at the attachment with associated trochanteric bursitis. There is prominent tendinosis of left gluteus minimus tendon. Transcribed Date/Time: 09/19/2019 12:28 PM
== END 2019-09-19 10:43 | disposition home or self-care (01) ==
LOC: TBSIIMAG 10:42
PROVIDERS: ATTEND Family Medicine
DX: M25.552 Pain in left hip (principal); M16.12 Unilateral primary osteoarthritis, left hip; S73.192A Other sprain of left hip, initial encounter; S76.012A Strain of muscle, fascia and tendon of left hip, initial encounter

== ENCOUNTER 2021-07-21 17:27 | Emergency (ER) | payer MEDICARE ==
[2021-07-21 19:11] LABS: #Basophils 0.1 thou/uL (0.0-0.2); #Eosinphils 0.2 thou/uL (0.0-0.7); #Lymphocytes 1.9 thou/uL (1.20-3.40); #Monocytes 0.8 thou/uL (0.11-0.59); %Basophils 0.9 % (0.0-1.0); %Eosinophils 3.1 % (0.0-10.0); %Lymphocytes 23.6 % (21.0-51.0); %Neutrophils 62.4 % (42.0-75.0); Hemoglobin 12.7 g/dL (12.0-16.0); Mean Corpuscular HGB CONC 32.5 g/dL (32.0-36.0); Mean Corpuscular Hemoglobin 33.1 pg (27.0-31.0); Mean Platelet Volume 7.5 fL (7.4-10.4); Platelet Count 250 thou/uL (130-400); RBC Distribution Width 12.3 % (11.5-14.5); Red Blood Cell (RBC) Count 3.83 mill/uL (4.20-5.40); White Blood Cell (WBC) Count 8.1 thou/uL (4.8-10.8)
[2021-07-21 19:33] LABS: ALT (SGPT) 19 U/L (8-55); AST (SGOT) 20 U/L (5-34); Albumin 4.1 g/dL (3.4-4.8); Alkaline Phosphatase 64 U/L (40-110); Anion Gap 12 mmol/L (10-20); BUN (Urea Nitrogen) 12 mg/dL (9.8-20.1); Bilirubin, Total 0.9 mg/dL (0.2-1.2); Calc. Creatinine Clearance 0 mL/min (70-130); Calcium 10.3 mg/dL (7.8-10.44); Carbon Dioxide 28 mmol/L (23-31); Chloride 101 mmol/L (98-107); Globulin 3.2 g/dL (2.4-3.5); Glucose 91 mg/dL (80-115); Potassium 4.1 mmol/L (3.5-5.1); Protein, Total 7.3 g/dL (5.8-8.1); Sodium 137 mmol/L (136-145)
== END 2021-07-21 21:01 | disposition home or self-care (01) ==
LOC: ERS 17:27
DX: M79.605 Pain in left leg (principal); I10 Essential (primary) hypertension; J45.909 Unspecified asthma, uncomplicated; Z79.01 Long term (current) use of anticoagulants
CPT/HCPCS: 36415; 80053; 83880; 85025

== ENCOUNTER 2022-07-28 11:05 | Outpatient (CLI) | payer MEDICARE | END 2022-07-28 11:06 | disposition home or self-care (01) | LOC: BICMAMMO 11:05 | PROVIDERS: ATTEND Family Medicine | DX: Z12.31 Encounter for screening mammogram for malignant neoplasm of breast (principal) | CPT/HCPCS: 77063; 77067 ==

== ENCOUNTER 2023-05-20 09:12 | Outpatient (CLI) | payer MEDICARE | END 2023-05-20 09:13 | disposition home or self-care (01) | LOC: ULT 09:12 | PROVIDERS: ATTEND Family Medicine | DX: G45.9 Transient cerebral ischemic attack, unspecified (principal); R39.89 Other symptoms and signs involving the genitourinary system | CPT/HCPCS: 76856; 93880 ==

== ENCOUNTER 2024-01-05 12:50 | Outpatient (CLI) | payer MEDICARE | END 2024-01-05 12:51 | disposition home or self-care (01) | LOC: SCSRAD 12:50 | PROVIDERS: ATTEND Nurse Practitioner | DX: I50.22 Chronic systolic (congestive) heart failure (principal); I49.5 Sick sinus syndrome; Z95.0 Presence of cardiac pacemaker | CPT/HCPCS: 36415; 71046; 80053; 83735; 84443; 85025 ==

== ENCOUNTER 2024-05-09 13:05 | Outpatient (CLI) | payer MEDICARE ==
[~2024-05-09 13:05] MED LIST: Iopamidol 370 76% 100 ML VIAL ONE; MD-Gastroview 120 ML BOT ONE
[2024-05-09 15:34] LABS: #Basophils 0.07 10x3/uL (0.0-0.2); %Basophils 0.7 % (0.0-1.0); %Eosinophils 1.2 % (0.0-10.0); %Lymphocytes 14.6 % (21.0-51.0); %Monocytes 13.1 % (0.0-10.0); %Neutrophils 70.1 % (42.0-75.0); Hematocrit 38.3 % (36.0-47.0); Hemoglobin 12.2 g/dL (12.0-16.0); Mean Corpuscular HGB CONC 31.9 g/dL (32.0-36.0); Mean Corpuscular Hemoglobin 34.3 pg (27.0-31.0); Mean Corpuscular Volume 107.6 fL (78.0-98.0); Mean Platelet Volume 9.7 fL (7.4-10.4); Platelet Count 207 10x3/uL (130-400); RBC Distribution Width 12.9 % (11.5-14.5); Red Blood Cell (RBC) Count 3.56 mill/uL (4.20-5.40)
[2024-05-09 15:43] LABS: ALT (SGPT) 14 U/L (8-55); AST (SGOT) 19 U/L (5-34); Albumin 3.4 g/dL (3.4-4.8); Alkaline Phosphatase 77 U/L (40-110); Anion Gap 12 mmol/L (10-20); BUN (Urea Nitrogen) 15 mg/dL (9.8-20.1); Bilirubin, Total 1.3 mg/dL (0.2-1.2); Calc. Creatinine Clearance 0 mL/min (70-130); Calcium 9.9 mg/dL (7.8-10.44); Carbon Dioxide 28 mmol/L (23-31); Chloride 100 mmol/L (98-107); Estimated GFR 72; Globulin 3.5 g/dL (2.4-3.5); Glucose 103 mg/dL (83-110); Lipase 8 U/L (8-78); Potassium 4.4 mmol/L (3.5-5.1); Protein, Total 6.9 g/dL (5.8-8.1); Sodium 136 mmol/L (136-145)
[2024-05-09 16:26] LABS: Bacteria/HPF 2+ HPF (None Seen); Bilirubin Negative (Negative); Blood, Urine 3+ (Negative); Clarity Turbid (Clear); Glucose, Urine (Dipstick) 500 mg/dL (Negative); Ketone, Urine Negative (Negative); Leukocyte 500 Leu/uL (Negative); Nitrite Negative (Negative); Protein, Urine (Dipstick) 20 mg/dL (Neg-Trace); Specific Gravity, Urine 1.018 (1.002-1.036); Squamous Epithelial 0-3 HPF (0-3); Urobilinogen Normal mg/dL (Less than 2)
[2024-05-09 16:27] LABS: WBC/HPF Greater than 50 HPF (0-3)
== END 2024-05-09 13:06 | disposition home or self-care (01) ==
LOC: CT 13:05
DX: R10.30 Lower abdominal pain, unspecified (principal); K57.30 Diverticulosis of large intestine without perforation or abscess without bleeding; K63.89 Other specified diseases of intestine; K76.89 Other specified diseases of liver; Z90.89 Acquired absence of other organs
CPT/HCPCS: 36415; 74177; 80053; 81001; 82565; 83690; 85025; 87077; 87086; 87186

== ENCOUNTER 2024-07-05 09:40 | Outpatient (CLI) | payer MEDICARE ==
[2024-07-05] MEDS ORDERED: Iopamidol 370 76% 100 ML VIAL ONE (13:06)
== END 2024-07-05 09:41 | disposition home or self-care (01) ==
LOC: BICCT 09:40
PROVIDERS: ATTEND Surgery
DX: K57.90 Diverticulosis of intestine, part unspecified, without perforation or abscess without bleeding (principal); K57.30 Diverticulosis of large intestine without perforation or abscess without bleeding
CPT/HCPCS: 74177; 82565; Q9967

== ENCOUNTER 2025-04-24 10:15 | Outpatient (CLI) | payer MEDICARE | END 2025-04-24 10:16 | disposition home or self-care (01) | LOC: BICMAMMO 10:15 | PROVIDERS: ATTEND Family Medicine | DX: Z78.0 Asymptomatic menopausal state (principal) | CPT/HCPCS: 77080 ==